=== PATIENT | male | born 1995 | race Caucasian/White ===

== ENCOUNTER → 2019-07-26 14:26 | Outpatient (CLI) | payer BC, SELFPAY ==
--- NOTE | ~2019-07-26 | XR_ITS ---
XR cervical spine min 6V DATE: 07/26/2019 15:32 INDICATION: Neck pain TECHNIQUE: AP, open-mouth, lateral, bilateral oblique views COMPARISON: 10/31/2017 CT cervical spine FINDINGS: There is straightening of the cervical spine. C1 and C2 are normally aligned and the odonto id process is intact. No fracture or dislocation or locked facet or prevertebral soft tissue swelling . There is no significant bony encroachment upon the neural foramina. Cervical interspaces are relati vely well preserved. IMPRESSION: Straightening of the cervical spine Reviewed, dictated and finalized at location B. UCTION INSPECTOR
== END ==
PROVIDERS: PCP Family Medicine; Visit Provider Physician Assistant
DX: M54.9 Dorsalgia, unspecified (principal)
CPT/HCPCS: 72052

== ENCOUNTER 2025-05-23 12:24 | Emergency (ER) | payer BC, SELFPAY ==
--- NOTE | ~2025-05-23 | CT_ITS ---
EXAMINATION: CT abdomen pelvis wo con DATE: 05/23/2025 14:35 INDICATION: Left abdominal and flank pain TECHNIQUE: Computed tomography (CT) of the abdomen and pelvis was performed without intravenous contrast. Automated exposure control and iterative reconstruction technique were employed. The dose-length product was 529.77 mGy-cm. COMPARISON: None FINDINGS: Lung bases are clear. Heart size is normal. No pericardial or pleural effusion. Liver, gallbladder, spleen, pancreas and bilateral adrenal glands are normal. Bilateral nephrolithiasis with 3 stones in the right kidney the largest at a lower pole calyx measuring 3 mm and 2 stones in the left kidney measuring up to 4 mm. There is an additional likely partially obstructing 4 mm stone at the left ureterovesicular junction with mild left hydroureteronephrosis. No right-sided ureteral stones or hydronephrosis. Bowels including the appendix are normal. Bladder is normal. No free intraperitoneal gas or fluid. No pathologically enlarged abdominal or pelvic lymphadenopathy. Moderate lower thoracic spondylosi s with chronic appearing mild likely physiologic anterior wedging at T11-L1. IMPRESSION: 1. Bilateral nephrolithiasis with at least partially obstructing 4 mm stone at the left ureterovesicular junction with mild left hydronephrosis. Reviewed, dictated and finalized at location A. MA PROCESSING TECHNICIAN
[2025-05-23 12:33] VITALS: BP 158/95; PULSE 65; RESP 22; TEMP 36.6; O2SAT 100
--- OUTSIDE RECORDS SUMMARY | 2025-05-23 13:20 | XMS_ITS | Clinical Summary ---
Author Organization [facility] Address [address] [place] [address] Phone Care Team Providers Care Outsoles Channel Opener Name Role Phone Unavailable Primary Care Provider Unavailabl e Allergies No known active allergies Medications No known medications Social History Tobacco Use Types Packs/Day Years Used Date Smoking Tobacco: Never Smokeless Tobacco: Never Sex and Gender Information Value Date Recorded Sex Assigned at Not on file Legal Sex Male 3:46 PM CDT Gender Identity Not on file Sexual Orientation Not on file Last Filed Vital Signs Vital Sign Reading Time Taken Comments Blood Pressure 145/89 01/29/2017 6:30 PM CDT Pulse 105 01/29/2017 6:30 PM CDT Temperature - - Respiratory Rate 16 01/29/2017 3:51 PM CDT Oxygen Saturation 94% 01/29/2017 6:30 PM CDT Inhaled Oxygen Concentration - - Weight 77.1 kg (170 lb) 01/29/2017 3:51 PM CDT Height 177.8 cm (5' 10) 01/29/2017 3:51 PM CDT Body Mass Index 24.39 01/29/2017 3:51 PM CDT Plan of Treatment Health Maintenance Due Date Last Done Comments DTAP/TDAP/TD VACCINES (1 - Tdap) 2013 HEPATITIS B VACCINES (1 of 3 - 19+ 3-dose series) 03/07 INFLUENZA VACCINE (#1) 2025 HPV VACCINES (No Doses Required) Completed Insurance [facility] OPTIONS PPO [id number]
--- OUTSIDE RECORDS SUMMARY | 2025-05-23 13:20 | XMS_ITS | Clinical Summary ---
Author Organization [facility] Address [address] [place] [address] Care Team Providers Care Director Dermatology Name Role Phone Eduardo Dotson MD Primary Care Provider [phone] Allergies No known active allergies Medications dicyclomine (BENTYL) 20 mg tabletIndications: Abdominal Pain with Cramps Take 1 tablet (20 mg total) by mouth 4 (four) times a day as needed (abdominal pain) Use only as needed for abdominal pain 30 tablet 2 Active ondansetron ODT (ZOFRAN-ODT) 4 mg disintegrating tablet Take 1 tablet (4 mg total) by mouth every 8 (eight) hours as needed for nausea or vomiting 20 tablet 2 Active Active Problems Problem Noted Date Diagnosed Date Bicuspid aortic valve 01/09/2013 Heart murmur 01/05/2012 Social History Tobacco Use Types Packs/Day Years Used Date Smoking Tobacco: Never Personal Safety Answer Date Recorded Getting School Help Needed Not on file 07/31 Sex and Gender Information Value Date Recorded Sex Assigned at Not on file 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 Gender Identity Not on file Sexual Orientation Not on file Last Filed Vital Signs Vital Sign Reading Time Taken Comments Blood Pressure 146/70 01/27/2022 1:51 PM CDT Pulse 71 01/27/2022 1:51 PM CDT Temperature 36.9 C (98.5 F) 01/27/2022 11:45 AM CDT Respiratory Rate 16 01/27/2022 1:51 PM CDT Oxygen Saturation 98% 01/27/2022 1:51 PM CDT Inhaled Oxygen Concentration - - Weight 89.4 kg (197 lb 1.5 oz) 01/27/2022 9:40 A M CDT Height 177.8 cm (5' 10) 01/27/2022 9:40 AM CDT Body Mass Index 28.28 01/27/2022 9:40 AM CDT Plan of Treatment Not on file Insurance SocialBro OOS SocialBro OOS Care Teams Director Dermatology Relationship Specialty Start Date End Date Eduardo Dotson MD [address] [place] [id number] PCP - General Family Medicine 01/27/22
--- NOTE | 2025-05-23 13:32 | PC.NURSE ---
Pt ambulated to intake desk stating he vomited and he feels better. Pt is providing a urine sample at this time.
[2025-05-23 14:17] VITALS: BP 138/80; PULSE 72; RESP 16; TEMP 36.9; O2SAT 100
--- NOTE | 2025-05-23 14:19 | ED_ITS ---
HPI - Abdominal Pain General Chief Complaint: Abdominal Pain <AMENA Guaman Last Filed: 05/23/25 17:49> Stated Complaint: abd pain <AMENA Guaman Last Filed: 05/23/25 17:49> Time Seen by Provider: 05/23/25 14:19 <Roz Perez PA-C - Last Filed: 05/23/25 17:49> Focused HPI: This is a 30 year old male that presents to the ER for left abdominal pain. Reports associated nausea, vomiting as well as urinary hesitancy. GENERAL: Uncomfortable, well-nourished, and in no acute distress. HEAD: Normocephalic, atraumatic. CHEST: Clear to auscultation. ?No respiratory distress. HEART: Regular rate and rhythm.? NEURO: ?Alert and oriented x3. Patient screened in triage and initial orders placed.? ?Additional care and disposition to be based upon?diagnostic testing and treatment. <Roz Perez PA-C - Last Filed: 05/23/25 17:49> History of Present Illness HPI narrative: Agree with HPI. No history of stones that he is aware of. <DO Isabelle Yo Last Filed: 05/23/25 17:48> Related Data Home Medications: Home Medications ?Medication ?Instructions ?Recorded ?Confirmed ?Last Taken ?Type albuterol sulfate 90 mcg/actuation inhalation 12/21/24 12/21/24 Unknown History aerosol inhaler amoxicillin 875 mg-potassium tablet PO 12/21/24 Unknown History clavulanate 125 mg tablet benzonatate 200 mg capsule mg PO 12/21/24 12/21/24 Unk nown History <AMENA Guaman Last Filed: 05/23/25 17:49> Allergies/Adverse Reactions: Allergies Allergy/AdvReac Type Severity Reaction Status Date / Time No Known Allergies Allergy Unverified 12/21/24 10:55 <AMENA Guaman Last Filed: 05/23/25 17:49> Review of Systems 2 Review of Systems: All systems reviewed & are unremarkable except as noted in HPI and below <Logan Manrique DO - Last Filed: 05/23/25 17:48> [facility]LY [facility], [facility] Social History Social History: Social History Smoking status: Unknown if ever smoked Alcohol intake: current Substance use: former Substance use type: marijuana Lack of Transportation: No Lack of Food: Never True Current Housing: I Have Housing Concerned About Future Housing: No Difficulty Paying Gas/Electric Bills: No Difficulty Paying for Meds: No Currently Unemployed: No Education: Bachelor's Degree Difficulty w/ Childcare or Family Care: No Living arrangements: with family Occupation/Education: occupation Gender identity (if verbalized by the patient): Male <Roz Perez PA-C - Last Filed: 05/23/25 17:49> Exam 2 Narrative: APPEARANCE: Moderate distress, pacing around the room, unable to sit still EYES: EOMI HEENT: Normocephalic, atraumatic, OMM RESPIRATORY: No respiratory distress Clear to auscultation bilaterally with no rhonchi wheezing or rales. CARDIOVASCULAR: Regular rate and rhythm without murmurs rubs or gallops. ABDOMINAL: Soft, tenderness palpation the left lower quadrant, minimal CVA tenderness on the left MUSCULOSKELETAl: Moves all extremities. No clubbing, cyanosis or edema. NEURO: Awake and alert. Following commands, speech normal, no focal deficits SKIN:: Warm, dry. No rashes lesions or abrasions PSYCHIATRIC: Normal affect/mood, <Logan Manrique DO - Last Filed: 05/23/25 17:48> Course Vital Signs Vital signs: Vital Signs Temperature 97.9 F 05/23/25 12:33 Pulse Rate 65 05/23/25 12:33 Respiratory Rate 22 H 05/23/25 12:33 Blood Pressure 158/95 H 05/23/25 12:33 Pulse Oximetry 100 05/23/25 12:33 Temperature 97.5 F L 05/23/25 16:21 Pulse Rate 67 05/23/25 16:21 Respiratory Rate 18 05/23/25 16:21 Blood Pressure 137/77 05/23/25 16:21 Pulse Oximetry 100 05/23/25 16:21 <Roz Perez PA-C - Last Filed: 05/23/25 17:49> Vital Signs Temperature 97.9 F 05/23/25 12:33 Pulse Rate 65 05/23/25 12:33 Respiratory Rate 22 H 05/23/25 12:33 Blood Pressure 158/95 H 05/23/25 12:33 Pulse Oximetry 100 05/23/25 12:33 Temperature 97.5 F L 05/23/25 16:21 Pulse Rate 67 05/23/25 16:21 Respiratory Rate 18 05/23/25 16:21 Blood Pressure 137/77 05/23/25 16:21 Pulse Oximetry 100 05/23/25 16:21 <Logan Manrique DO - Last Filed: 05/23/25 17:48> [facility] MDM Narrative Medical decision making narrative: 30-year-old male Presenting for left flank and left lower quadrant abdominal pain. On initial evaluation patient was in moderate distress pacing around the room, unable to sit still afebrile, hemodynamic stable. Differentials include but are not limited to: Ureterolithiasis, pyelonephritis, MSK pain, constipation, obstruction, PNA, Cancer Notable exam findings: Minimal CVA tenderness on the left, tenderness palpation of the left quadrant. I personally reviewed the patient's lab result. Notable lab findings: Leukocytosis at 12, CMP without significant abnormalities. UA consistent with hematuria, no UTI. There is a 4 mm partially obstructing left ureteral stone at the UVJ with right nephrolithiasis without any evidence of obstruction. Patient was given Toradol and did have significant improvement of his symptoms. Patient stone will likely pass in the coming days. He was given prescriptions for Toradol, Zofran, Flomax. He was given a referral to Urology for further evaluation if needed. Patient the plan. Given strict return precautions. < Logan Manrique DO - Last Filed: 05/23/25 17:48> Differential Diagnosis Differential Diagnosis: Ureterolithiasis, pyelonephritis, MSK pain, constipation, obstruction, PNA, Cancer <Logan Manrique DO - Last Filed: 05/23/25 17:48> Lab Data Result diagrams: 05/23/25 14:26 05/23/25 14:26 <Roz Perez PA-C - Last Filed: 05/23/25 17:49> Labs: Lab Results 05/23/25 05/23/25 Range/Units 14:18 14:26 WBC 12.0 H (4.5-10.0) K/mm3 RBC 5.39 (4.6-6.20) M/mm3 Hgb 16.2 (14.0-18.0) g/dL Hct 47.6 (42.0-52.0) % MCV 88.3 (80-100) fl MCH 30.1 (26-34) pg MCHC 34.0 (32-36) g/dl RDW 12.1 (11.5-14.5) % Plt Count 225 (150-375) k/mm3 MPV 10.5 H (7.4-10.4) fl Immature Gran % (Auto) 0.5 (0-0.5) % Neut % (Auto) 82.3 H (45.5-73.1) % Lymph % (Auto) 11.6 L (18.3-44.2) % [place] % (Auto) 5.2 (2.6-8.5) % Eos % (Auto) 0.1 (0-4.4) % Baso % (Auto) 0.3 (0.2-1.2) % Lymph # (Auto) 1.39 (0.9-3.2) K/mm3 [place] # (Auto) 0.6 (0.1-0.6) K/mm3 Eos # (Auto) 0.0 (0-0.3) K/mm3 Baso # (Auto) 0.0 (0.0-0.1) K/mm3 Abs Immat Gran (auto) 0.06 H (0.00-0.031) K/mm3 Absolute Neuts (auto) 9.9 H (1.3-6.7) K/mm3 Absolute Nucleated RBC 0.000 (0.0-0.012) K/mm3 Nucleated RBC % 0.0 (0.0-0.2) % Sodium 139 (137-145) mmol/L Potassium 3.5 (3.4-5.0) mmol/L Chloride 101 (98-107) mmol/L Carbon Dioxide 25 (22-30) mmol/L Anion Gap 13 H (4-12) mmol/L BUN 12 (9-20) mg/dL Creatinine 0.92 (0.7-1.3) mg/dL Estim Creat Clear Calc Not Reportable Estimated GFR > 60 (59 - ) Glucose 112 H (65-110) mg/dL Calcium 10.3 H (8.4-10.2) mg/dL Total Bilirubin 1.0 (0.2-1.3) mg/dL AST 39 (17-59) U/L ALT 59 H (6-50) U/L Alkaline Phosphatase 63 (38-126) U/L Total Protein 8.9 H (6.3-8.2) g/dL Albumin 5.1 (3.5-5.1) g/dL Urine Color Yellow (Yellow) Urine Appearance Clear (Clear) Urine pH 5.0 (5.0-9.0) Ur Specific [place] 1.020 (1.001-1.035) Urine Protein Negative (Negative) mg/dL Urine Glucose (UA) Negative (Negative) mg/dL Urine Ketones Trace H (Negative) mg/dL Ur Blood (Man) 3+ H (Negative) Urine Nitrate Negative (Negative) Urine Bilirubin Negative (Negative) Urine Urobilinogen 0.2 (<2.0) mg/dL Leukocyte Esterase Rfl Negative (Negative) LIONEL/UL Urine RBC 21-50 H (0-2) /hpf Urine WBC 0-5 (0-3) /hpf Ur Squamous Epith Cells None seen (Few) /hpf Urine Bacteria None seen /hpf Urine Casts 3-5 <Roz Perez PA-C - Last Filed: 05/23/25 17:49> Lab Results 05/23/25 05/23/25 Range/Units 14:18 14:26 WBC 12.0 H (4.5-10.0) K/mm3 RBC 5.39 (4.6-6.20) M/mm3 Hgb 16.2 (14.0-18.0) g/dL Hct 47.6 (42.0-52.0) % MCV 88.3 (80-100) fl MCH 30.1 (26-34) pg MCHC 34.0 (32-36) g/dl RDW 12.1 (11.5-14.5) % Plt Count 225 (150-375) k/mm3 MPV 10.5 H (7.4-10.4) fl Immature Gran % (Auto) 0.5 (0-0.5) % Neut % (Auto) 82.3 H (45.5-73.1) % Lymph % (Auto) 11.6 L (18.3-44.2) % [place] % (Auto) 5.2 (2.6-8.5) % Eos % (Auto) 0.1 (0-4.4) % Baso % (Auto) 0.3 (0.2-1.2) % Lymph # (Auto) 1.39 (0.9-3.2) K/mm3 [place] # (Auto) 0.6 (0.1-0.6) K/mm3 Eos # (Auto) 0.0 (0-0.3) K/mm3 Baso # (Auto) 0.0 (0.0-0.1) K/mm3 Abs Immat Gran (auto) 0.06 H (0.00-0.031) K/mm3 Absolute Neuts (auto) 9.9 H (1.3-6.7) K/mm3 Absolute Nucleated RBC 0.000 (0.0-0.012) K/mm3 Nucleated RBC % 0.0 (0.0-0.2) % Sodium 139 (137-145) mmol/L Potassium 3.5 (3.4-5.0) mmol/L Chloride 101 (98-107) mmol/L Carbon Dioxide 25 (22-30) mmol/L Anion Gap 13 H (4-12) mmol/L BUN 12 (9-20) mg/dL Creatinine 0.92 (0.7-1.3) mg/dL Estim Creat Clear Calc Not Reportable Estimated GFR > 60 (59 - ) Glucose 112 H (65-110) mg/dL Calcium 10.3 H (8.4-10.2) mg/dL Total Bilirubin 1.0 (0.2-1.3) mg/dL AST 39 (17-59) U/L ALT 59 H (6-50) U/L Alkaline Phosphatase 63 (38-126) U/L Total Protein 8.9 H (6.3-8.2) g/dL Albumin 5.1 (3.5-5.1) g/dL Urine Color Yellow (Yellow) Urine Appearance Clear (Clear) Urine pH 5.0 (5.0-9.0) Ur Specific [place] 1.020 (1.001-1.035) Urine Protein Negative (Negative) mg/dL Urine Glucose (UA) Negative (Negative) mg/dL Urine Ketones Trace H (Negative) mg/dL Ur Blood (Man) 3+ H (Negative) Urine Nitrate Negative (Negative) Urine Bilirubin Negative (Negative) Urine Urobilinogen 0.2 (<2.0) mg/dL Leukocyte Esterase Rfl Negative (Negative) LIONEL/UL Urine RBC 21-50 H (0-2) /hpf Urine WBC 0-5 (0-3) /hpf Ur Squamous Epith Cells None seen (Few) /hpf Urine Bacteria None seen /hpf Urine Casts 3-5 <Logan Manrique DO - Last Filed: 05/23/25 17:48> Imaging Data Radiologist's impression: ITS Impressions Abdomen/Pelvis CT 05/23/25 14:39 IMPRESSION: 1. Bilateral nephrolithiasis with at least partially obstructing 4 mm stone at the left ureterovesicular junction with mild left hydronephrosis. <Roz Perez PA-C - Last Filed: 05/23/25 17:49> ITS Impressions Abdomen/Pelvis CT 05/23/25 14:39 IMPRESSION: 1. Bilateral nephrolithiasis with at least partially obstructing 4 mm stone at the left ureterovesicular junction with mild left hydronephrosis. <Logan Manrique DO - Last Filed: 05/23/25 17:48> Critical Care Time Critical Care Time Critical Care Time: No <Roz Perez PA-C - Last Filed: 05/23/25 17:49> Discharge Plan Discharge Clinical Impression: Ureterolithiasis <Roz Perez PA-C - Last Filed: 05/23/25 17:49> Patient Disposition: Home <Roz Perez PA-C - Last Filed: 05/23/25 17:49> Condition: Stable <AMENA Guaman Last Filed: 05/23/25 17:49> Instructions: Antibiotic Form, Kidney Stones (ED), How to Strain Your Urine (ED) <AMENA Guaman Last Filed: 05/23/25 17:49> Additional Instructions: He refrain have a kidney stone, this will likely pass the next few days. Your given prescriptions for Toradol, Zofran, Flomax, take these as prescribed. Your given a referral to Dr. Graham, Urology, follow-up with her office in the next week for re-evaluation if needed. Return to the ED for any new or worsening symptoms. <Roz Perez PA-C - Last Filed: 05/23/25 17:49> Patient Language: Latvian <Roz Perez PA-C - Last Filed: 05/23/25 17:49> Prescriptions: New ketorolac 10 mg tablet 10 mg PO Q8H PRN (Reason: pain) Qty: 15 0RF Rx Instructions: maximum total duration of 5 days from all oral, intranasal, or parenteral formulations tamsulosin 0.4 mg capsule 0.4 mg PO HS Qty: 30 0RF ondansetron 4 mg tablet,disintegrating 4 mg PO Q8H PRN (Reason: nausea and vomiting) Qty: 12 0RF No Action amoxicillin-pot clavulanate 875-125 mg tablet PO albuterol sulfate 90 mcg/actuation HFA aerosol inhaler inhalation benzonatate 200 mg capsule PO <Roz Perez PA-C - Last Filed: 05/23/25 17:49> Follow-up/Referrals: Meghna Graham MD [Physician, Urology] Eduardo Dotson MD [Primary Care Provider, Family Practice] <Roz Perez PA-C - Last Filed: 05/23/25 17:49>
[2025-05-23] MEDS: ONDANSETRON HCL ODT 4 MG TABLET PO (14:27)
[2025-05-23 14:36] LABS: Hematocrit 47.6 % (42.0-52.0); Hemoglobin 16.2 g/dL (14.0-18.0); Immature Granulocyte Percent A 0.5 % (0-0.5); Lymphocytes Absolute Auto 1.39 K/mm3 (0.9-3.2); Mean Corpuscular HGB Conc 34.0 g/dl (32-36); Mean Corpuscular Hemoglobin 30.1 pg (26-34); Mean Corpuscular Volume 88.3 fl (80-100); Nucleated Red Blood Cells Absolute Auto 0.000 K/mm3 (0.0-0.012); Nucleated Red Blood Cells Perc 0.0 % (0.0-0.2); Platelet Count Result 225 k/mm3 (150-375); Red Blood Count 5.39 M/mm3 (4.6-6.20); White Blood Count 12.0 K/mm3 (4.5-10.0)
[2025-05-23 14:38] LABS: Add Urine Microscopic? YES; Appearance Urine Clear (Clear); Glucose Urine UA Negative (Negative); Leukocyte Esterase Ur Negative LEU/UL (Negative); Nitrate Urine Negative (Negative); Specific Grav Ur 1.020 (1.001-1.035)
[2025-05-23 14:45] LABS: Alanine Aminotransferase 59 U/L (6-50); Albumin Level 5.1 g/dL (3.5-5.1); Alkaline Phosphatase 63 U/L (38-126); Anion Gap 13 mmol/L (4-12); Aspartate Amino Transferase 39 U/L (17-59); Bilirubin,Total 1.0 mg/dL (0.2-1.3); Blood Urea Nitrogen 12 mg/dL (9-20); Calcium 10.3 mg/dL (8.4-10.2); Carbon Dioxide 25 mmol/L (22-30); Chloride 101 mmol/L (98-107); Estimated Glomerular Filt Rate > 60; Glucose 112 mg/dL (65-110); Potassium 3.5 mmol/L (3.4-5.0); Sodium 139 mmol/L (137-145); Total Protein 8.9 g/dL (6.3-8.2)
--- OUTSIDE RECORDS SUMMARY | 2025-05-23 15:30 | XMS_ITS | Clinical Summary ---
Author Organization [facility] Address [address] [place] [address] Phone Care Team Providers Care Archaeology Professor Name Role Phone Unavailable Primary Care Provider [...] HPV VACCINES (No Doses Required) Completed Insurance [facility] OPTIONS PPO [id number]
--- OUTSIDE RECORDS SUMMARY | 2025-05-23 15:30 | XMS_ITS | Clinical Summary ---
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
[2025-05-23] MEDS: KETOROLAC 30 MG/ML VIAL (*BKC) IM (15:31)
[2025-05-23] MEDS: TAMSULOSIN HCL 0.4 MG CAPSULE PO (15:31)
[2025-05-23 16:21] VITALS: BP 137/77; PULSE 67; RESP 18; TEMP 36.4; O2SAT 100
== END 2025-05-23 16:30 | disposition home or self-care (01) ==
PROVIDERS: Physician Assistant; Emergency Provider Student in an Organized Health Care Education/Training Program; PCP Family Medicine
DX: N13.2 Hydronephrosis with renal and ureteral calculous obstruction (principal)
CPT/HCPCS: 36415; 74176; 80053; 81001; 85025; 96372; 99284; A9270; J1885